=== PATIENT | male | born 1990 | race Caucasian/White ===

== ENCOUNTER 2022-03-04 20:02 | Emergency (ER) | payer OTHER, SELFPAY ==
--- NOTE | ~2022-03-04 | CT_ITS ---
EXAMINATION: CT brain wo con DATE: 03/04/2022 20:40 INDICATION: pt found unresponsive. weakness and confusion . TECHNIQUE: Computed tomography (CT) of the head was performed without intravenous contrast. The mA wa s adjusted according to patient size. Iterative reconstruction technique was employed. The dose-lengt h product was 1135.00 mGy-cm. COMPARISON: None FINDINGS: Motion limited examination that required repeat imaging. No acute intracranial hemorrhage or extra-axial fluid collection. No hydrocephalus, mass, or herniation. No acute ischemic infarct. Unremarkable dural venous sinus attenuation. No acute osseous abnormality. The aerated spaces are clear. IMPRESSION: No acute intracranial process. Reviewed, dictated and finalized at location K.
--- NOTE | 2022-03-04 20:12 | ED.OVERDOSE ---
HPI - Overdose General Chief Complaint: Overdose Stated Complaint: amb Time Seen by Provider: 03/04/22 20:13 Source: patient and police Mode of arrival: EMS Limitations: no limitations History of Present Illness HPI Narrative: patient found unresponsive in a vehicle and was given Narcan for total of 4 mg. He then became more alert shot of 1 of the EMS techs against the wall and jumped out of the back of the ambulance. He was then tased by police. He was re-loaded into the ambulance and brought in for further evaluation. He refuses to give his name. Police state that he was found with multiple identification is on his person. He thinks that a friend of his may have laced his cocaine with fentanyl. Related Data Allergies Allergy/AdvReac Type Severity Reaction Status Date / Time Penicillins Allergy Unknown Verified 03/04/22 21:25 Sulfa (Sulfonamide Allergy Unknown Verified 03/04/22 21:25 Antibiotics) Review of Systems Review of Systems: patient only complains of pain in his right shoulder where the taty from the Taser was. All systems reviewed & are unremarkable except as noted in HPI and below PMFSH Past Medical History Medical History (Updated 03/04/22 @ 21:46 by Tony Tyson MD) Methamphetamine abuse Social History Social History (Updated 03/04/22 @ 21:45 by Tony Tyson MD) Substance use: current Substance use type: marijuana and methamphetamine Exam Const: General: no acute distress and alert Nutritional Appearance: well nourished Orientation/consciousness: patient oriented x3 Limitations: no limitations Other: Patient knows that he is in [place] unwilling to give his name oriented to time HENMT: Head: normal to inspection Ears: external ears normal Face and sinus: normal facial exam Eyes: Conjunctivae: conjunctivae normal Pupils: Equal, round and reactive pupils present EOM: EOMs intact bilaterally Neck: Neck: normal visual inspection Resp: Effort & Inspection: normal respiratory effort Auscultation: clear to auscultation bilaterally Cardio: Rate: tachycardic Rhythm: regular rhythm GI: GI Palp: Yes Soft to palpation and No Tenderness to palpation present (GI) Auscultation: normal bowel sounds Back/Spine/Pelvis: Cervical Spine: cervical ROM normal Thoracic/Lumbar Spine: thoraco-lumbar ROM normal Skin: General skin exam: normal color Rashes: no rashes Neuro: General: moves all extremities, no focal motor deficits and CN's II-XI intact bilaterally Speech: normal speech Gait exam (Neuro): Normal gait present Extrem: General: normal exam except as noted and no clubbing, cyanosis or edema Right upper extremity: shoulder/upper arm ( bandage in place with tenderness in the area where days or taty was.) Psych: Mental Status: mental status grossly normal Affect: normal affect Attitude: Refuses to answer (attititude/behavior) Course Vital Signs Vital signs: Vital Signs Temperature 36.4 C 03/04/22 20:19 Pulse Rate 125 H 03/04/22 20:19 Respiratory Rate 18 03/04/22 20:19 Blood Pressure 143/103 H 03/04/22 20:19 Pulse Oximetry 98 03/04/22 20:19 Oxygen Delivery Room Air 03/04/22 20:19 Temperature 36.4 C 03/04/22 20:19 Pulse Rate 104 H 03/04/22 21:42 Respiratory Rate 18 03/04/22 21:42 Blood Pressure 129/79 03/04/22 21:42 Pulse Oximetry 96 03/04/22 21:42 Oxygen Delivery Room Air 03/04/22 21:42 MDM - Overdose Lab Data Result diagrams: 03/04/22 20:25 03/04/22 20:25 Labs: Lab Results 03/04/22 03/04/22 03/04/22 Range/Units 20:25 20:25 20:25 WBC 6.6 (4.8-10.8) K/mm3 RBC 5.19 (4.70-6.10) M/mm3 Hgb 16.2 (14.0-18.0) g/dL Hct 46.9 (40.0-54.0) % MCV 90.4 (78.0-102.0) fL MCH 31.2 H (27.0-31.0) pg MCHC 34.5 (32.0-36.0) g/dL RDW 12.3 (11.6-14.4) % Plt Count 262 (150-420) K/mm3 MPV 8.7 (8.7-11.0) fl Immature Gran % (Auto) 0.3 H (0.0-0.0) % Ne
[2022-03-04 20:19] VITALS: BP 143/103; PULSE 125; RESP 18; TEMP 36.4; O2SAT 98
--- NOTE | 2022-03-04 20:27 | PC.NURSE ---
pt refusing to communicate with staff
[2022-03-04 20:28] LABS: Basophils Absolute Auto 0.03 K/mm3 (0.00-0.10); Basophils Percent Auto 0.5 % (0.0-1.0); Eosinophils Absolute Auto 0.16 K/mm3 (0.02-0.50); Eosinophils Percent Auto 2.4 % (1.0-6.0); Hematocrit 46.9 % (40.0-54.0); Hemoglobin 16.2 g/dL (14.0-18.0); Immature Granulocyte Absolute 0.02 K/mm3 (0.00-0.00); Immature Granulocyte Percent A 0.3 % (0.0-0.0); Lymphocytes Absolute Auto 1.28 K/mm3 (1.10-4.50); Lymphocytes Percent Auto 19.4 % (18.0-42.0); Mean Corpuscular HGB Conc 34.5 g/dL (32.0-36.0); Mean Corpuscular Hemoglobin 31.2 pg (27.0-31.0); Mean Corpuscular Volume 90.4 fL (78.0-102.0); Mean Platelet Volume 8.7 fl (8.7-11.0); Monocytes Absolute Auto 0.53 K/mm3 (0.10-0.90); Neutrophils Absolute Auto 4.6 K/mm3 (1.7-7.2); Neutrophils Percent Auto 69.4 % (50.0-70.0); Platelet Count Result 262 K/mm3 (150-420); Red Blood Count 5.19 M/mm3 (4.70-6.10); Red Cell Distribution Width 12.3 % (11.6-14.4); White Blood Count 6.6 K/mm3 (4.8-10.8)
[2022-03-04 20:52] LABS: Acetaminophen < 2 ug/mL (10-30); Alanine Aminotransferase 117 U/L (16-63); Alkaline Phosphatase 88 U/L (46-116); Anion Gap 6 mmol/L (8-16); Aspartate Amino Transferase 58 U/L (15-37); Blood Urea Nitrogen 14 mg/dL (7-18); Carbon Dioxide 30 mmol/L (21-32); Chloride 99 mmol/L (98-108); Estimated Glomerular Filt Rate > 60; Ethanol < 3 mg/dL (0-6); Glucose 121 mg/dL (70-99); Magnesium 2.4 mg/dL (1.8-2.4); Osmolality Calculated 281 mOsm/kg (285-295); Potassium 3.5 mmol/L (3.5-5.1); Sodium 135 mmol/L (136-145); Total Protein 7.5 g/dL (6.4-8.2)
[2022-03-04 20:53] LABS: Salicylate 0.9 mg/dL (2.8-20.0)
[2022-03-04 21:25] LABS: Amphetamine Screen Urine Positive (Negative); Barbiturate Screen Urine Negative (Negative); Benzodiazepines Screen Urine Negative (Negative); Cannabinoid Screen Urine Positive (Negative); Cocaine Screen Urine Negative (Negative); Methadone Screen Urine Negative (Negative); Opiate Screen Urine Negative (Negative); Phencyclidine Screen Urine Negative (Negative)
[2022-03-04 21:42] VITALS: BP 129/79; PULSE 104; RESP 18; O2SAT 96
== END 2022-03-04 21:43 ==
PROVIDERS: Emergency Provider Emergency Medicine
DX: T65.91XA Toxic effect of unspecified substance, accidental (unintentional), initial encounter (principal); F15.10 Other stimulant abuse, uncomplicated
CPT/HCPCS: 36415; 70450; 80053; 80307; 83735; 85025; 99284; J2310

== ENCOUNTER 2025-06-15 10:50 | Emergency (ER) | payer OTHER, SELFPAY ==
--- NOTE | ~2025-06-15 | XR_ITS ---
EXAM/PROCEDURE: XR chest 1V portable - 06/15/2025 11:45 CDT HISTORY: 35 years old Male with seizure TECHNIQUE: AP view(s) of the chest. COMPARISON: None available. FINDINGS: LUNGS/ PLEURA: No focal consolidation. No appreciable pneumothorax or large pleural effusion. HEART/ MEDIASTINUM: Heart appears normal in size. BONES: No acute osseous abnormality. OTHER: Visualized upper abdomen is unremarkable. IMPRESSION: No acute process. Reviewed, dictated and finalized at location N. IMPRESSION: No acute process.
--- NOTE | ~2025-06-15 | CT_ITS ---
EXAMINATION: CT brain wo con DATE: 06/15/2025 11:24 INDICATION: Seizure TECHNIQUE: Computed tomography (CT) of the head was performed without intravenous contrast. Sagittal and coronal reconstructions were performed. The mA was adjusted according to patient size. Iterative reconstruction technique was employed. The dose-length product was 681.00 mGy-cm. COMPARISON: head CT dated 03/04/2022 FINDINGS: No acute intracranial hemorrhage, acute infarction or abnormal extra axial fluid collection. Ventricles are normal and symmetric. No mass/mass effect. Mild to moderate mucosal thickening the right maxillary and bilateral ethmoid sinuses. The orbits and mastoid air cells are normal. IMPRESSION: 1. Normal brain. No acute intracranial process. Reviewed, dictated and finalized at location A.
[2025-06-15 10:55] VITALS: BP 125/87; PULSE 103; RESP 15; TEMP 37.4; O2SAT 100
--- NOTE | 2025-06-15 11:02 | ECG_ITS ---
Test Date: 2025-06-15 11:04:58 Measurements Intervals [place] Rate: 108 P: 78 AK: 179 QRS: 27 QRSD: 67 T: 29 QT: 328 QTc: 441 Interpretive Statements SINUS TACHYCARDIA NONSPECIFC T-WAVE ABNORMALITIES ABNORMAL RHYTHM ECG No previous ECG available for comparison Electronically Signed On 06-15-2025 11:41:57 CDT by Aurelio Souza M.D.
[2025-06-15] MEDS: SODIUM CHLORIDE 0.9% IV 1,000 ML 999 ML IV CONT (11:14)
[2025-06-15] MEDS: ONDANSETRON INJ 4 MG/2 ML VIAL IV PUSH (11:27)
--- NOTE | 2025-06-15 11:28 | ED.GENADULT ---
HPI - General Adult General Chief complaint: Seizure Stated complaint: seizure History of Present Illness HPI narrative: Patient is a 35-year-old gentleman who presents emergency department with chief complaint of seizures patient has history of fentanyl and benzodiazepine abuse patient had a seizure yesterday the facility has been attempting to do oral withdrawal protocol at the detention the patient had a no other seizure today patient was postictal when EMS arrived he was given Zofran and 100 mg of thiamine in route the patient presents postictal patient reports no prior history of seizures Related Data Allergies Allergy/AdvReac Type Severity Reaction Status Date / Time Penicillins Allergy Unknown Verified 03/05/22 13:33 Sulfa (Sulfonamide Allergy Unknown Verified 03/05/22 13:33 Antibiotics) Review of Systems Review of Systems: A 10 system review of systems was completed on the patient and is negative except for what is stated in the HPI. Nursing and ancillary documentation was reviewed. [facility] Past Medical History Medical History Methamphetamine abuse Social History Social History Substance use: current Substance use type: marijuana and methamphetamine Exam Narrative: GENERAL: Well-appearing, well-nourished, and in no acute distress. HEAD: Normocephalic, atraumatic. EYES: PERRLA and EOMI. ENT: Nares clear, no rhinorrhea or epistaxis. Mucous membranes moist. NECK: Supple. CHEST: Clear to auscultation. No respiratory distress. HEART: Regular rate and rhythm. No murmur heard. Normal peripheral pulses. ABDOMEN: Soft, nontender, nondistended, normal active bowel sounds. EXTREMITIES: Normal range of motion. No edema. SKIN: Warm, dry, no rash. NEURO: No focal deficits. Alert and oriented x3. PSYCH: Normal mood and affect. Course Vital Signs Vital signs: Vital Signs Temperature 37.4 C 06/15/25 10:55 Pulse Rate 103 H 06/15/25 10:55 Respiratory Rate 15 06/15/25 10:55 Blood Pressure 125/87 06/15/25 10:55 Pulse Oximetry 100 06/15/25 10:55 Oxygen Delivery Room Air 06/15/25 10:55 Temperature 37.4 C 06/15/25 10:55 Pulse Rate 103 H 06/15/25 10:55 Respiratory Rate 15 06/15/25 10:55 Blood Pressure 125/87 06/15/25 10:55 Pulse Oximetry 100 06/15/25 10:55 Oxygen Delivery Room Air 06/15/25 10:55 Medical Decision Making MDM Narrative Medical decision making narrative: Differential diagnosis includes benzodiazepine withdrawal epileptic seizure, The patient received laboratory testing in the emergency department that showed a normal CBC urinalysis showed 1+ ketones tox screen was positive for amphetamines and benzodiazepines ETOH was negative CT head was negative Chest x-ray showed no focal infiltrate Given the patient has had benzodiazepine withdrawal before in the past and seizures in the past and also has had 2 seizures even while being on withdrawal protocol at the correctional facility the patient will be admitted for further care in the inpatient setting Vital Signs Vital Signs: Vital Signs Temperature 37.4 C 06/15/25 10:55 Pulse Rate 103 H 06/15/25 10:55 Respiratory Rate 15 06/15/25 10:55 Blood Pressure 125/87 06/15/25 10:55 Pulse Oximetry 100 06/15/25 10:55 Oxygen Delivery Room Air 06/15/25 10:55 Temperature 37.4 C 06/15/25 10:55 Pulse Rate 103 H 06/15/25 10:55 Respiratory Rate 15 06/15/25 10:55 Blood Pressure 125/87 06/15/25 10:55 Pulse Oximetry 100 06/15/25 10:55 Oxygen Delivery Room Air 06/15/25 10:55 Lab Data 06/15/25 11:39 06/15/25 11:39 Labs: Lab Results 06/15/25 06/15/25 06/15/25 Range/Units 11:02 11:39 11:48 WBC 9.6 (4.5-10.0) K/mm3 RBC 5.23 (4.6-6.20) M/mm3 Hgb 15.7 (14.0-18.0) g/dL Hct 44.2 (42.0-52.0) % MCV 84.5 (80-100) fl MCH 30.0 (26-34) pg MCHC 35.5 (32-36) g/dl RDW 12.2 (11.5-14.5) % Plt Count 222 (150-375) k/mm3 MPV 8.5 (7.4-10.4) fl Immature Gran % (Auto) 0.4 (0-0.5) % Neut % (Auto) 79.2 H (45.5-73.1) % Lymph % (Auto) 14.2 L (18.3-44.2) % [place] % (Auto) 5.9 (2.6-8.5) % Eos % (Auto) 0.1 (0-4.4) % Baso % (Auto) 0.2 (0.2-1.2) % Lymph # (Auto) 1.36 (0.9-3.2) K/mm3 [place] # (Auto) 0.6 (0.1-0.6) K/mm3 Eos # (Auto) 0.0 (0-0.3) K/mm3 Baso # (Auto) 0.0 (0.0-0.1) K/mm3 Abs Immat Gran (auto) 0.04 H (0.00-0.031) K/mm3 Absolute Neuts (auto) 7.6 H (1.3-6.7) K/mm3 Absolute Nucleated RBC 0.000 (0.0-0.012) K/mm3 Nucleated RBC % 0.0 (0.0-0.2) % PT 13.7 (11.1-14.7) Seconds INR 1.1 Sodium 137 (137-145) mmol/L Potassium 3.6 (3.4-5.0) mmol/L Chloride 106 (98-107) mmol/L Carbon Dioxide 24 (22-30) mmol/L Anion Gap 7 (4-12) mmol/L BUN 8 L (9-20) mg/dL Creatinine 0.79 (0.7-1.3) mg/dL Estim Creat Clear Calc 123 ml/min Estimated GFR > 60 (59 - ) Glucose 102 (65-110) mg/dL POC Capillary Glucose 104 (65-105) mg/dl Lactic Acid 1.0 (0.7-2.0) mmol/L Calcium 9.1 (8.4-10.2) mg/dL Phosphorus 1.7 L (2.5-4.5) mg/dL Magnesium 1.7 (1.6-2.3) mg/dL Total Bilirubin 0.7 (0.2-1.3) mg/dL AST 45 (17-59) U/L ALT 45 (6-50) U/L Alkaline Phosphatase 72 (38-126) U/L Total Protein 7.2 (6.3-8.2) g/dL Albumin 4.0 (3.5-5.1) g/dL Urine Color Yellow (Yellow) Urine Appearance Cloudy H (Clear) Urine pH 6.5 (5.0-9.0) Ur Specific [place] 1.018 (1.001-1.035) Urine Protein Negative (Negative) mg/dL Urine Glucose (UA) Negative (Negative) mg/dL Urine Ketones 1+ H (Negative) mg/dL Ur Blood (Man) Negative (Negative) Urine Nitrate Negative (Negative) Urine Bilirubin Negative (Negative) Urine Urobilinogen 1.0 (<2.0) mg/dL Leukocyte Esterase Rfl Negative (Negative) BRENNAN/UL Urine RBC 0-2 (0-2) /hpf Urine WBC 0-5 (0-3) /hpf Ur Squamous Epith Cells None seen (Few) /hpf Urine Bacteria None seen /hpf Urine Casts 0-2 Urine Opiates Screen Negative (Negative) Urine Methadone Screen Negative (Negative) Ur Barbiturates Screen Negative (Negative) Ur Phencyclidine Scrn Negative (Negative) Ur Amphetamine Screen Positive A (Negative) U Benzodiazepines Scrn Positive A (Negative) Urine Cocaine Screen Negative (Negative) U Cannabinoids Screen Negative (Negative) Ethyl Alcohol < 10 (<10) mg/dL Discharge Plan Discharge Clinical Impression: Benzodiazepine withdrawal, Seizure Patient Disposition: Still a Patient Condition: Stable Patient Language: Croatian Follow-up/Referrals: UNKNOWN,DOCTOR [Primary Care Provider] Time of Disposition: 12:47
[2025-06-15 11:46] LABS: Hematocrit 44.2 % (42.0-52.0); Hemoglobin 15.7 g/dL (14.0-18.0); Immature Granulocyte Percent A 0.4 % (0-0.5); Lymphocytes Absolute Auto 1.36 K/mm3 (0.9-3.2); Mean Corpuscular HGB Conc 35.5 g/dl (32-36); Mean Corpuscular Hemoglobin 30.0 pg (26-34); Mean Corpuscular Volume 84.5 fl (80-100); Nucleated Red Blood Cells Absolute Auto 0.000 K/mm3 (0.0-0.012); Nucleated Red Blood Cells Perc 0.0 % (0.0-0.2); Platelet Count Result 222 k/mm3 (150-375); Red Blood Count 5.23 M/mm3 (4.6-6.20); White Blood Count 9.6 K/mm3 (4.5-10.0)
--- OUTSIDE RECORDS SUMMARY | 2025-06-15 11:47 | XMS_ITS | Clinical Summary ---
Author Organization [facility] Address [address] [place] [address] Care Team Providers Care Refining Machine Operator Name Role Phone No, Physician Primary Care Provider [phone] Allergies No known active allergies Medications No known medications Active Problems No known active problems Social History Tobacco Use Types Packs/Day Years Used Date Smoking Tobacco: Never Assessed Personal Safety Answer Date Recorded Have you ever been in or are you currently in a harmful physical or emotional relationship or is someone making you feel afraid or unsafe? Denies 09/03/2024 Sex and Gender Information Value Date Recorded Sex Assigned at Not on file Legal Sex Male 7:12 PM [employer] Gender Identity Not on file Sexual Orientation Not on file Obstetrics History Last Filed Vital Signs Vital Sign Reading Time Taken Comments Blood Pressure 106/90 09/04/2024 2:30 AM INSPECT[employer] Pulse 101 09/04/2024 4:30 AM INSPECTOR [employer]SEMBL[employer] Temperature 36.8 C (98.2 F) 10/16/2017 10:42 PM INSPECT[employer] Respiratory Rate 17 09/04/2024 4:30 AM INSPECTOR ASSEMBLY Oxygen Saturation 97% 09/04/2024 4:30 AM INSPECTOR [employer]SEM[employer] Inhaled Oxygen Concentration - - Weight 99.8 kg (220 lb) 09/03/2024 10:52 PM INSPECTOR [employer]SEM[employer] Height 182.9 cm (6') 09/03/2024 10:52 PM [employer]PECTOR [employer] Body Mass Index 29.84 09/03/2024 10:52 PM [employer]PECTOR [employer]SEM[employer] Plan of Treatment Health Maintenance Due Date Last Done Comments Depression Screening 1989 Hepatitis C Screening 1989 DTaP/Tdap/Td Vaccine (1 - Tdap) 2000 Varicella Vaccines (1 of 2 - 13+ 2-dose series) 2002 Hepatitis B Screening 2007 Regular Well Visit/Exam 18-64 2007 HPV Vaccines (1 - 3-dose SCD M series) 2016 Influenza Vaccine (#1) 2025 Pneumococcal vaccine <65 Aged Out No longer eligible based on patient's age to complete this topic Insurance [facility] Care Teams Refining Machine Operator Relationship Specialty Start Date End Date No, Physician PCP - General 09/03/24
[2025-06-15 11:52] LABS: Add Urine Microscopic? YES; Appearance Urine Cloudy (Clear); Glucose Urine UA Negative (Negative); Leukocyte Esterase Ur Negative LEU/UL (Negative); Nitrate Urine Negative (Negative); Non Pathogenic Casts 0-2; Specific Grav Ur 1.018 (1.001-1.035)
[2025-06-15 11:59] LABS: INR 1.1; Prothrombin Time 13.7 Seconds (11.1-14.7)
[2025-06-15 12:01] LABS: Alanine Aminotransferase 45 U/L (6-50); Albumin Level 4.0 g/dL (3.5-5.1); Alkaline Phosphatase 72 U/L (38-126); Anion Gap 7 mmol/L (4-12); Aspartate Amino Transferase 45 U/L (17-59); Bilirubin,Total 0.7 mg/dL (0.2-1.3); Blood Urea Nitrogen 8 mg/dL (9-20); Calcium 9.1 mg/dL (8.4-10.2); Carbon Dioxide 24 mmol/L (22-30); Chloride 106 mmol/L (98-107); Estimated CRCL calculation 123 ml/min; Estimated Glomerular Filt Rate > 60; Glucose 102 mg/dL (65-110); Magnesium 1.7 mg/dL (1.6-2.3); Potassium 3.6 mmol/L (3.4-5.0); Sodium 137 mmol/L (137-145); Total Protein 7.2 g/dL (6.3-8.2)
[2025-06-15] MEDS: diazePAM INJ (*CRX) 10 MG/2 ML SYRINGE IV PUSH (12:05)
[2025-06-15 12:19] LABS: Cannabinoid Screen Urine Negative (Negative)
[2025-06-15] MEDS: SODIUM CHLORIDE 0.9% IV 1,000 ML 125 ML IV CONT (13:03)
[2025-06-15] MEDS: NICOTINE (*PBKC) 21 MG PATCH 1 PATCH (14:04)
--- NOTE | 2025-06-15 14:21 | PM.IMHP ---
H&P: HPI History of Present Illness Date/Time: 06/15/25 14:21 Chief Complaint: Seizure, Withdrawal Narrative: 35 y/o M with PMH of polysubstance abuse (fentanyl and benzodiazepine) and withdrawal seizures presents here with seizures. The patient presents here from the local [facility] correction via EMS for further evaluation of seizures. HPI obtained through EMS report, chart review, and patient report. Per EMS, the correction reported that the patient had a seizure yesterday and today. He has been in her custody for the past 2-3 days. They have been attempting to manage the patient via their withdrawal protocol as he has been actively withdrawing from Patanol and benzodiazepines. Seizure today and lasted for approximately 2 minutes and the patient was altered, combative, and contracted post seizure. He arrived to the emergency department A&O x1, at baseline is A&O x4. The patient is now A&O x4. He reports a previous history of withdrawal seizures. Last fentanyl and benzodiazepine use was on XX. He uses via XX. Alcohol use? Initial VS at presentation: 99.3? F, [place] 103, [place] [address]/87, and 100% on RA. ED workup showed: No leukocytosis, no anemia, normal coags, no significant electrolyte derangements, renal function within normal limits, UA was cloudy with 1+ ketones otherwise unremarkable. UDS positive for amphetamines and benzodiazepines. ETOH negative. Head CT showed normal brain and no acute intracranial process. CXR showed no acute process. Review of Systems Review of Systems: All systems reviewed & are unremarkable except as noted in HPI and below PMFSH Past Medical History Medical History Benzodiazepine abuse Methamphetamine abuse Social History Social History Substance use: current Substance use type: marijuana and methamphetamine Meds Home Medications and Allergies Allergies Allergy/AdvReac Type Severity Reaction Status Date / Time Penicillins Allergy Unknown Verified 03/05/22 13:33 Sulfa (Sulfonamide Allergy Unknown Verified 03/05/22 13:33 Antibiotics) Vital Signs Vital Signs - 24 hr 06/15/25 10:55 Temperature 99.3 F Pulse Rate 103 H Respiratory Rate 15 Blood Pressure 125/87 Pulse Oximetry 100 Oxygen Delivery Room Air H&P: Results Labs Labs: Short CBC 06/15/25 Range/Units 11:39 WBC 9.6 (4.5-10.0) K/mm3 Hgb 15.7 (14.0-18.0) g/dL Hct 44.2 (42.0-52.0) % Plt Count 222 (150-375) k/mm3 BMP 06/15/25 11:39 Sodium 137 Potassium 3.6 Chloride 106 Carbon Dioxide 24 BUN 8 L Creatinine 0.79 Glucose 102 Calcium 9.1 Liver Function 06/15/25 Range/Units 11:39 Total Bilirubin 0.7 (0.2-1.3) mg/dL AST 45 (17-59) U/L ALT 45 (6-50) U/L Alkaline Phosphatase 72 (38-126) U/L Albumin 4.0 (3.5-5.1) g/dL Urine 06/15/25 Range/Units 11:39 Urine Color Yellow (Yellow) Urine Appearance Cloudy H (Clear) Urine pH 6.5 (5.0-9.0) Ur Specific [place] 1.018 (1.001-1.035) Urine Protein Negative (Negative) mg/dL Urine Glucose (UA) Negative (Negative) mg/dL Assessment and Plan Assessment and plan (1) Benzodiazepine withdrawal: Qualifiers: Complication of substance-induced condition: with unspecified complication Qualified Code(s): F13.939 - Sedative, hypnotic or anxiolytic use, unspecified with withdrawal, unspecified Code(s): F13.939 - Sedative, hypnotic or anxiolytic use, unspecified with withdrawal, unspecified Status: Acute Assessment and Plan: - withdrawal from amphetamines and benzodiazepine complicated by seizure activity - amphetamine/benzodiazepine use: - last use: - [facility] protocol in [facility] Diazepam PRN seizure precautions neurochecks Q2H - IV fluids: 1L bolus -> 125 mL/hour - antiemetics PRN (2) Seizure: Code(s): R56.9 - Unspecified convulsions Status: Acute Assessment and Plan: - see above Plan Diet: Clear liquid GI Prophylaxis: N/a DVT Prophylaxis: SCDs IV fluids: 1L bolus -> 125 mL/hour Lines/Tubes: Peripheral IV Code Status: Full code Quality VTE Prophylaxis VTE prophylaxis: mechanical ordered Hospitalist MIPS Advance Care Plan I have confirmed that the patient's Advanced Care Plan is present, code status is documented, or surrogate decision maker is listed in patient medical record.: Yes
== END 2025-06-15 16:53 | disposition home or self-care (01) ==
PROVIDERS: Emergency Provider Emergency Medicine
DX: R56.9 Unspecified convulsions (principal); F13.230 Sedative, hypnotic or anxiolytic dependence with withdrawal, uncomplicated
CPT/HCPCS: 36415; 70450; 71045; 80053; 80307; 81001; 82077; 82948; 83605; 83735; 84100; 85025; 85610; 93005; 96361; 96374; 96375; 99284; A9270; J2405; J3360; J7030